=== PATIENT | male | born 1940 | race Caucasian/White ===

== ENCOUNTER → 2017-03-23 | Day surgery (SDC) | payer MEDICARE ==
[~2017-03-23] MED LIST: ASPI325T PO; ATOR40TA PO; BUPIVACAINE HCL PF 0.75% 30 ML VIAL ONE; FISHCAP PO; FLUO20TA20 PO; LACTATED RINGER'S 1000 ML INJ 1,000 ML ONE; LIDOCAINE 1.5%/EPINEPHrine 1:200,000 PF SOLN 30 ML AMP NERV BLOCK ONE; LORTA5 PO; METO25 PO; MIDAZOLAM HCL 5 MG/ML VIAL (1 ML) ONE; NITR0.4S SL; ONDANSETRON HCL 4 MG/2 ML VIAL IV PUSH ONE; PROPOFOL 200 MG/20 ML AMP IV ONE; RANI150 PO; TAB-TAB PO; ceFAZolin 2 GM PREMIX 50 ML ONE
--- NOTE | 2017-03-24 18:39 | MP ---
cc: OH ORDOÑEZ M.D. DATE OF SURGERY: 03/24/2017. PREOPERATIVE DIAGNOSIS: 1. Left shoulder rotator cuff tear. 2. Left shoulder impingement syndrome. 3. Left shoulder rotator cuff tear. 4. Left shoulder osteoarthritis. 5. Acromioclavicular joint left shoulder labral SLAP tear. POSTOPERATIVE DIAGNOSIS: 1. Left shoulder rotator cuff tear. 2. Left shoulder impingement syndrome. 3. Left shoulder rotator cuff tear. 4. Left shoulder osteoarthritis. 5. Acromioclavicular joint left shoulder labral SLAP tear. OPERATIVE PROCEDURE PERFORMED: 1. Left shoulder arthroscopic rotator cuff repair. 2. Left shoulder arthroscopic subacromial decompression. 3. Left shoulder arthroscopic extensive debridement of SLAP labral tear. 4. Left shoulder arthroscopic distal clavicle excision. SURGEON: Dr. Oh Ordoñez. CALIBRATION LABORATORY TECHNICIAN: Therese Rodas ANESTHESIA: General with interscalene block. ESTIMATED BLOOD LOSS: Less than 10 cc. COMPLICATIONS: None. IMPLANTS USED: Arthrex. JUSTIFICATION FOR THE PROCEDURE: This patient is a 76-year male with a history of progressive pain and weakness in the left shoulder. He has failed conservative treatment. Clinical exam as well as MRI confirmed the above-named findings. The patient was counseled as to the risks, benefits, and alternatives to the above-named surgical procedure and he did wish to proceed with surgery. DESCRIPTION OF THE PROCEDURE IN DETAIL: Written consent was obtained. The patient was identified by name and taken to the operating room and placed in the supine position. General anesthesia was administered as well as 2 grams of IV Ancef. He did have a preoperative interscalene block to the left upper extremity. The patient was carefully turned to the right lateral decubitus position and a lateral arm roll was placed. All bony prominences and pressure points were well-padded. The left shoulder had an arthroscopic arm bettencourt applied with 10 pounds of traction gently placed. The left shoulder was prepped and draped using as isopropyl alcohol, Hibiclens solution and DuraPrep solution. After a time-out was performed, the standard posterior and anterior glenohumeral arthroscope portals were placed. The glenohumeral joint revealed evidence of extensive labral tearing along the anterior, superior and posterior aspects. An arthroscopic shaver was introduced from the anterior portal and extensive debridement of the labrum was performed. This included the three o'clock up to the twelve o'clock and back down to the nine o'clock position. There was evidence of mild glenohumeral chondromalacia which was also debrided. There was evidence of massive full-thickness rotator cuff tear as visualized from the glenohumeral joint. Attention was turned to the subacromial space. There was evidence of significant impingement and bursitis. An arthroscopic shaver was introduced from the lateral portal and a subacromial decompression was performed. The shaver was used to perform extensive bursectomy. The arthroscopic bur was used to perform the acromioplasty and the cautery device was used to release the coracoacromial ligament. The bur was used to decorticate the greater tuberosity in preparation for rotator cuff tendon repair. At this point, a distal clavicle excision was performed. The bur was used to excise 1 cm of the distal clavicle initially from lateral portal to the anterior portal. Two Arthrex 4.75 mm Bio SwiveLock anchors were then inserted along the medial row. The Arthrex Scorpion device was used to shuttle #2 FiberTape suture through the anterior and posterior portions of the torn tendon. A #2 FiberLink suture was placed along a far anterior and the far posterior portions as well. An Arthrex double row speed bridge construct was then created with implantation of the posterolateral and anterolateral anchor. After insertion of the suture anchors, the repair was noted to have good stability and fixation. There was a posterior torn leaflet that extended into the infraspinatus tendon. Two Arthrex #2 FiberLink sutures were placed along the far posterior portion and a fifth anchor was inserted along the far posterolateral aspect. After insertion of last anchor, the rotator cuff was noted to have excellent approximation and fixation. At the conclusion of the surgical procedure, the arthroscopic portals were closed with 3-0 Prolene suture. Sterile dressings were applied. The patient was placed in a sling and swathe immobilizer. The patient tolerated the procedure well with no intraoperative complications noted. NOTE Ulysses Morgan, physician surgical first assistant certified, was present during the entire procedure to include patient positioning and the procedure itself. The medical necessity of a physician surgical first assistant was indicated in this case due to the complexity of the procedure itself. He assisted with appropriate manipulation of the arm and also manipulation of the camera. He assisted with shuttling of the sutures and also implantation of the suture anchors for the purposes of rotator cuff tendon repair. MD EL Rhodes/NIMISHA /9:47 AM /6:27 PM
== END | disposition home or self-care (01) ==
LOC: ESDC 07:05
PROVIDERS: ATTEND Orthopaedic Surgery Sports Medicine
DX: M75.122 Complete rotator cuff tear or rupture of left shoulder, not specified as traumatic (principal); M75.42 Impingement syndrome of left shoulder; M19.012 Primary osteoarthritis, left shoulder; S43.439A Superior glenoid labrum lesion of unspecified shoulder, initial encounter
CPT/HCPCS: 01630; 01991; 29807; 29824; 29826; 29827; 64417; C1713; J0690; J2250; J2405; J7120

== ENCOUNTER 2017-06-30 20:40 | Emergency (ER) | payer MEDICARE ==
[~2017-06-30] VITALS: Ht 172.7 cm; Wt 72.0 kg
[~2017-06-30 20:40] MED LIST changes: -BUPIVACAINE HCL PF 0.75% 30 ML VIAL ONE; -LACTATED RINGER'S 1000 ML INJ 1,000 ML ONE; -LIDOCAINE 1.5%/EPINEPHrine 1:200,000 PF SOLN 30 ML AMP NERV BLOCK ONE; -MIDAZOLAM HCL 5 MG/ML VIAL (1 ML) ONE; -ONDANSETRON HCL 4 MG/2 ML VIAL IV PUSH ONE; -PROPOFOL 200 MG/20 ML AMP IV ONE; -ceFAZolin 2 GM PREMIX 50 ML ONE
[2017-06-30 20:42] VITALS: BP 117/78; PULSE 117; RESP 16; TEMP 98.4; O2SAT 98
[2017-06-30 22:25] VITALS: BP 194/94; PULSE 84; RESP 18; O2SAT 100
[2017-06-30] MEDS ORDERED: ONDANSETRON HCL 4 MG/2 ML VIAL IVP ONE (22:30)
[2017-06-30] MEDS ORDERED: SODIUM CHLORIDE 0.9% FLUSH 10 ML FLUSH IV FLUSH PRN (22:30)
[2017-06-30] MEDS ORDERED: SODIUM CHLORID 0.9% 500 ML INJ 500 ML IV ONE (22:30)
[2017-06-30 22:55] LABS: APTT (PATIENT) 30.4 SEC (24.3-30.1); PROTHROMBIN TIME - PATIENT 11.6 SEC (9.8-11.6)
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
[2017-06-30 23:01] LABS: AUTOMATED NEUTROPHIL # 8.2 TH/MM3 (1.8-7.7); BASOPHIL % 0.4 % (0.0-2.0); EOSINOPHIL % 0.4 % (0.0-4.0); HEMATOCRIT 42.2 % (39.0-51.0); HEMO FLAGS DIFF FINAL; LYMPH % 15.2 % (9.0-44.0); LYMPHOCYTE # 1.8 TH/MM3 (1.0-4.8); MEAN CELL VOLUME 97.5 FL (80.0-100.0); MEAN CORPUSCULAR HEMOGLOBIN 33.8 PG (27.0-34.0); MEAN CORPUSCULAR HGB CONC 34.6 % (32.0-36.0); MONO % 13.6 % (0.0-8.0); NEUT % 70.4 % (16.0-70.0); PLATELET COUNT 161 TH/MM3 (150-450); RED BLOOD COUNT 4.33 MIL/MM3 (4.50-5.90); RED CELL DISTRIBUTION WIDTH 12.7 % (11.6-17.2); WHITE BLOOD COUNT 11.6 TH/MM3 (4.0-11.0)
[2017-06-30 23:04] LABS: ALT (GPT) 18 U/L (12-78); ANION GAP 7 MEQ/L (5-15); AST (GOT) 25 U/L (15-37); BICARBONATE 28.9 MEQ/L (21.0-32.0); BLOOD UREA NITROGEN 25 MG/DL (7-18); CHLORIDE 100 MEQ/L (98-107); GLOMERULAR FILTRATION RATE 27 ML/MIN (>89); POTASSIUM 3.7 MEQ/L (3.5-5.1); SODIUM (NA) 136 MEQ/L (136-145)
[2017-06-30 23:06] LABS: ALKALINE PHOSPHATASE 96 U/L (45-117); TOTAL BILIRUBIN ADULT 0.9 MG/DL (0.2-1.0)
[2017-06-30 23:08] VITALS: O2SAT 98
[2017-06-30] MEDS ORDERED: DIATRIZOATE MEGLUM/DIATRIZOATE SOD 9 ML CUP ONE (23:24)
[2017-06-30 23:49] VITALS: BP 160/78; PULSE 94; RESP 18; O2SAT 96
--- NOTE | 2017-07-01 00:43 | RADRPT ---
EXAM DATE/TIME: 07/01/2017 00:11 [facility] COMPARISON: No previous studies available for comparison. INDICATIONS : Abdominal pain with nausea. ORAL CONTRAST: Prescribed oral contrast ingested. RADIATION DOSE: 5.24 CTDIvol (mGy) MEDICAL HISTORY : Cardiovascular disease. Carcinoma, prostate. Coronary artery disease. Peritonitis. SURGICAL HISTORY : Appendectomy. Angioplasty. ENCOUNTER: Initial ACUITY: 1 day PAIN SCALE: 5/10 LOCATION: Bilateral abdomen TECHNIQUE: Volumetric scanning of the abdomen and pelvis was performed. Using automated exposure control and ad justment of the mA and/or kV according to patient size, radiation dose was kept as low as reasonably achievable to obtain optimal diagnostic quality images. DICOM format image data is available electro nically for review and comparison. FINDINGS: LOWER LUNGS: Minimal bilateral dependent atelectatic changes. No confluent infiltrate. LIVER: Homogeneous density without lesion. There is no dilation of the biliary tree. No calcified gallston es. SPLEEN: Normal size without lesion. Linear, wire-like metallic density identified just above the spleen subja cent to the left hemidiaphragm. PANCREAS: Within normal limits. KIDNEYS: Mild pelvocaliectasis and hydroureter on the right. I believe is due to a 2 mm stone identified just distal to the right UVJ in the urinary bladder. ADRENAL GLANDS: Within normal limits. VASCULAR: There is no aortic aneurysm. BOWEL/MESENTERY: There is rather diffuse contrast and air distention of the small bowel and colon with 2 discrete mcclellan sition is near the splenic flexure and junction of the descending and sigmoid portions of the colon w ithout focal mass lesion. It is most characteristic of a hypodynamic ileus. ABDOMINAL WALL: Postsurgical changes with surgical clips in the region of the lower rectus abdominis muscle. RETROPERITONEUM: There is no lymphadenopathy. BLADDER: No wall thickening or mass. REPRODUCTIVE: Multiple prostatic seeds. INGUINAL: There is no lymphadenopathy or hernia. MUSCULOSKELETAL: Within normal limits for patient age. CONCLUSION: 1. There is some pelvocaliectasis and hydroureter of the right kidney. This may be due to 2 mm stone which is seen at the base of the urinary bladder just distal to the UVJ. This may explain any right-s ided flank/back pain the patient is experiencing. 2. CT findings characteristic of a hypodynamic ileus. 3. Postsurgical changes with surgical clips in the lower rectus abdominis muscle and multiple prostat ic seeds. Andrea Archuleta MD on July 01, 2017 at 0:35 Board Certified Radiologist. This report was verified electronically.
[2017-07-01 00:55] VITALS: BP 164/82; PULSE 87; RESP 18; O2SAT 97
[2017-07-01] MEDS ORDERED: ASPI81CH CHEW (01:00)
[2017-07-01] MEDS ORDERED: BUPR100T4 PO (01:00)
[2017-07-01] MEDS ORDERED: ZETI10TA5 PO (01:00)
[2017-07-01] MEDS ORDERED: OMEGCAP PO (01:00)
[2017-07-01] MEDS ORDERED: FLUO20CA12 PO (01:00)
[2017-07-01] MEDS ORDERED: ATOR1TAB18 PO (01:00)
[2017-07-01 01:40] LABS: BLOOD, URINE SMALL (NEG); COMMENT (UR) CULT NOT INDICATED; CULTURE IF INDICATED CULT NOT INDICATED; GLUCOSE,URINE NEG (NEG); KETONE, URINE NEG (NEG); MUCUS URINE FEW /lpf (OCC); NITRITE,URINE NEG (NEG); PH, URINE 5.5 (5.0-8.5); URINE COLOR YELLOW (YELLW/STRAW)
[2017-07-01 01:59] VITALS: BP 153/67; PULSE 83; RESP 18; O2SAT 95
[2017-07-01] MEDS ORDERED: SODIUM CHLOR 0.9% 1000 ML INJ 1,000 ML IV ONE (02:00)
[2017-07-01 03:22] VITALS: BP 179/77; PULSE 90; RESP 18; O2SAT 98
[2017-07-01 03:42] LABS: BICARBONATE 26.4 MEQ/L (21.0-32.0); POTASSIUM 3.7 MEQ/L (3.5-5.1)
[2017-07-01] MEDS ORDERED: ACETAMINOPHEN 325 MG TAB PO ONE (04:00)
--- NOTE | 2017-07-01 15:09 | EKG ---
Date Performed: 06/30/2017 Time Performed: 22:40:39 PTAGE: 77 years EKG: Sinus rhythm NORMAL ECG Since PREVIOUS TRACING , no significant change noted PREVIOUS TRACIN08/27/2009 18.20 DOCTOR: Carlos Viramontes Interpretating Date/Time 07/01/2017 15:07:38
== END 2017-07-01 04:24 | disposition home or self-care (01) ==
LOC: NEPC 20:40
DX: R10.31 Right lower quadrant pain (principal); K56.7 Ileus, unspecified; N17.9 Acute kidney failure, unspecified; E86.0 Dehydration; R11.2 Nausea with vomiting, unspecified; I25.10 Atherosclerotic heart disease of native coronary artery without angina pectoris; Z95.5 Presence of coronary angioplasty implant and graft
CPT/HCPCS: 74176; 80048; 80053; 81001; 83690; 85025; 85610; 85730; 93005; 96374; 99285; J2405; J7030; J7040; Q9963